=== PATIENT | female | born 1960 | race Caucasian/White ===

== ENCOUNTER 2019-04-24 22:17 | Emergency (ER) | payer MEDICARE, OTHER ==
[2019-04-24] MEDS ORDERED: Ondansetron PF 4 MG/2 ML Vial ONE (22:35)
[2019-04-24 22:47] LABS: Bilirubin Negative (Negative); Blood, Urine Negative (Negative); Clarity Slightly Cloudy (Clear); Glucose, Urine (Dipstick) Negative (Negative); Leukocyte Negative (Negative); Nitrite Negative (Negative); Protein, Urine (Dipstick) Negative (Neg-Trace)
[2019-04-24 22:48] LABS: #Basophils 0.1 thou/uL (0.0-0.2); #Eosinphils 0.3 thou/uL (0.0-0.7); #Monocytes 0.6 thou/uL (0.11-0.59); #Neutrophils 6.6 thou/uL (1.40-6.50); %Basophils 0.9 % (0.0-1.0); %Eosinophils 2.5 % (0.0-10.0); %Lymphocytes 28.4 % (21.0-51.0); %Monocytes 5.4 % (0.0-10.0); %Neutrophils 62.8 % (42.0-75.0); Hemoglobin 11.1 g/dL (12.0-16.0); Mean Corpuscular HGB CONC 30.7 g/dL (32.0-36.0); Mean Corpuscular Hemoglobin 30.1 pg (27.0-31.0); Mean Corpuscular Volume 98.2 fL (78.0-98.0); Platelet Count 311 thou/uL (130-400); White Blood Cell (WBC) Count 10.5 thou/uL (4.8-10.8)
[2019-04-24 23:03] LABS: ALT (SGPT) 9 U/L (8-55); AST (SGOT) 12 U/L (5-34); Albumin 3.7 g/dL (3.5-5.0); Alkaline Phosphatase 105 U/L (40-150); Anion Gap 16 mmol/L (10-20); BUN (Urea Nitrogen) 17 mg/dL (9.8-20.1); Bilirubin, Total Less than 0.2 mg/dL (0.2-1.2); Calc. Creatinine Clearance 0 mL/min (70-130); Calcium 9.1 mg/dL (7.8-10.44); Carbon Dioxide 20 mmol/L (22-29); Chloride 109 mmol/L (98-107); Estimated GFR-MDRD 55; Globulin 3.7 g/dL (2.4-3.5); Glucose 91 mg/dL (70-105); Lipase 26 U/L (8-78); Protein, Total 7.4 g/dL (6.0-8.3); Sodium 141 mmol/L (136-145)
[2019-04-24] MEDS ORDERED: methylPREDNISolone Sod Succ/PF 125 MG/2 ML VIAL ONE (23:26)
--- NOTE | 2019-04-24 23:34 | CT ---
PRELIMINARY REPORT/[facility]/EMERGENCY AFTER HOURS PROCEDURE EXAM: CT Abdomen and Pelvis Without Contrast EXAM DATE/TIME: 04/24/2019 11:03 PM CLINICAL HISTORY: 58 years old, female; Abdominal pain; Localized; Right lower quadrant (rlq); Prior surgery; Surgery d ate: 6+ months; Surgery type: Appendectomy, cholecystectomy, hysterectomy TECHNIQUE: Imaging protocol: Axial computed tomography images of the abdomen and pelvis without contrast. Coron al and sagittal reformatted images were created and reviewed. Radiation optimization: All CT scans a t this facility use at least one of these dose optimization techniques: automated exposure control; m A and/or kV adjustment per patient size (includes targeted exams where dose is matched to clinical in dication); or iterative reconstruction. COMPARISON: No relevant prior studies available. FINDINGS: Lungs: Patchy air space opacity in the left lower lobe, incompletely visualized, most compatible in appearance with bronchopneumonia. Liver: Normal. No mass. Gallbladder and bile ducts: Normal. No calcified stones. No ductal dilation. Pancreas: Normal. No ductal dilation. Spleen: Normal. No splenomegaly. Adrenals: Normal. No mass. Kidneys and ureters: Normal. No hydronephrosis. Stomach and bowel: Colon is mildly distended with stool and gas. No bowel wall thickening or intestinal obstruction. Appendix: Appendix not visualized. No evidence of appendicitis. Intraperitoneal space: Normal. No free air. No significant fluid collection. Vasculature: Normal. No abdominal aortic aneurysm. Lymph nodes: Normal. No enlarged lymph nodes. Bladder: Unremarkable as visualized. Reproductive: Prior hysterectomy. Bones/joints: Vertebral fusion hardware. Soft tissues: Unremarkable. IMPRESSION: Patchy air space opacity in the left lower lobe, incompletely visualized, most compatible in appearan ce with bronchopneumonia. Thank you for allowing us to participate in the care of your patient. Dictated and Authenticated by: Russ Basilio MD 04/24/2019 11:26 PM Central Time ([place] & [place]) FINAL REPORT CT ABDOMEN NONCONTRAST CT PELVIS NONCONTRAST: (urolithiasis protocol) DATE: 04/24/19 at 11:04 p.m. HISTORY: 58-year-old female with right lower quadrant abdominal pain. COMPARISON: None available. TECHNIQUE: IV injection of iodinated contrast media: none Oral contrast media: none FINDINGS: Other than for urolithiasis, the lack of IV and oral contrast limits the evaluation. The appendix is difficult to identify. No abscess, ascites, or pneumoperitoneum identified within the abdominal cavity or pelvic cavity. Nonspecific mild mural thickening of urinary bladder. Somewhat la rge amount of colonic stool throughout the colon. No signs of colonic diverticulitis. No small bowel dilation. No renal, ureteral, or bladder calculus. No hydronephrosis. No abdominal aortic aneurysm. W ithin the limitations of a noncontrast scan, no major abnormality identified involving the bilateral kidneys, liver, pancreas, adrenals, or spleen. Images are degraded by patient breathing motion. Midli ne decompressive laminectomy defects and bilateral pedicle screws, throughout most of the lumbar spin e. Faint, mild patchy pulmonary infiltrates in left lower lobe. No major disagreement with preliminar y report by [facility]. IMPRESSION: 1. No urolithiasis or obstructive uropathy. 2. Extensive postsurgical changes throughout the lumbar spine. 3. Possible mild bronchopneumonia in left lower lobe. CODE QA JN R POS: CET
== END 2019-04-24 23:41 | disposition home or self-care (01) ==
LOC: BURERS 22:17
DX: R10.31 Right lower quadrant pain (principal); F17.210 Nicotine dependence, cigarettes, uncomplicated; I10 Essential (primary) hypertension; Z86.73 Personal history of transient ischemic attack (TIA), and cerebral infarction without residual deficits; Z79.899 Other long term (current) drug therapy; Z79.82 Long term (current) use of aspirin
CPT/HCPCS: 74176; 80053; 81003; 83605; 83690; 85025; 96361; 96374; 96375; J2405; J2930